=== PATIENT | male | born 1965 | race Caucasian/White ===

== ENCOUNTER 2018-03-25 10:56 | Emergency (ER) | payer BC ==
[2018-03-25 11:35] VITALS: BP 143/67
--- NOTE | 2018-03-25 12:04 | ED ---
Respiratory - History of Current Complaint Chief Complaint: UCGeneralIllness Stated Complaint: CHEST CONGESTION Time Seen by Provider: 03/25/18 11:50 Hx Obtained From: Patient Onset/Duration: Gradual Onset, Lasting Weeks, Still Present Timing: Constant Initial Severity: Moderate Current Severity: Moderate Pain Intensity: 0 Sputum Amount: Scant Sputum Color: Clear Aggravating Factor(s): Deep Breaths Alleviating Factor(s): OTC Medications, Spontaneous Resolution Associated Signs and Symptoms: URI, Chest Pain with Cough, Nasal Congestion - Allergy/Home Medications Allergies/Adverse Reactions: Allergies Allergy/AdvReac Type Severity Reaction Status Date / Time No Known Allergies Allergy Verified 03/25/18 11:35 PMH/Surg Hx/FS Hx/Imm Hx Previously Healthy: No - smoker. Endocrine/Hematology History: Denies: Hx Diabetes, Hx Thyroid Disease Cardiovascular History: Denies: Hx Hypertension, Hx Pacemaker/ICD Respiratory History: Denies: Hx Asthma, Hx Chronic Obstructive Pulmonary Disease (COPD) GI History: Denies: Hx Ulcer History: Denies: Hx Renal Disease Sensory History: Denies: Hx Hearing Aid Psychiatric History: Denies: Hx Panic Disorder - Surgical History Surgery Procedure, Year, and Place: L4-5 discectomy 2002 Infectious Disease History: No Infectious Disease History: Denies: Hx Hepatitis, Hx Human Immunodeficiency Virus (HIV), Traveled Outside the [place] in Last 30 Days - Family History Known Family History: Positive: Other - No hx of respiratory disease in the family. - Social History Occupation: Employed Full-time Alcohol Use: None Substance Use Type: Reports: None Smoking Status (MU): Heavy Every Day Tobacco Smoker Amount Used/How Often: 1/2 ppd Length of Time of Smoking/Using Tobacco: 25 years Review of Systems Positive: Cough All Other Systems Reviewed And Are Negative: Yes Physical Exam Triage Information Reviewed: Yes Vital Signs On Initial Exam: Initial Vitals Temp Pulse Resp BP Pulse Ox 97.5 F 78 18 143/67 99 03/25/18 11:30 03/25/18 11:30 03/25/18 11:30 03/25/18 11:30 03/25/18 11:30 Vital Signs Reviewed: Yes Appearance: Positive: Well-Appearing, No Pain Distress, Well-Nourished Skin: Positive: Warm Eyes: Positive: Normal ENT: Positive: Pharynx normal, Nasal congestion, TMs normal, Uvula midline. Negative: Pharyngeal erythema, Nasal drainage, TM bulging, TM dull, TM red, Tonsillar swelling, Tonsillar exudate, Trismus, Muffled voice, Hoarse voice, Dental tenderness, Sinus tenderness Neck: Positive: Supple, Nontender, No Lymphadenopathy Respiratory/Lung Sounds: Positive: Clear to Auscultation, Breath Sounds Present. Negative: Rales, Rhonchi, Subcutaneous Emphysema, Stridor, Tracheal Deviation, Wheezes, Unable to speak in full sentences Cardiovascular: Positive: RRR. Negative: Leg Edema Left, Leg Edema Right Abdomen Description: Positive: No Organomegaly, Soft. Negative: Distended, Guarding Musculoskeletal: Negative: Edema Left, Edema Right Neurological: Positive: Normal, Sensory/Motor Intact, Normal Gait Diagnostics - Vital Signs Vital Signs Temp Pulse Resp BP Pulse Ox 03/25/18 11:30 97.5 F 78 18 143/67 99 - Laboratory Lab Statement: Any lab studies that have been ordered have been reviewed, and results considered in the medical decision making process. Disposition - Course Assessment/Plan: supporitive care described. Z pack as this has been 2-3 weeks in a smoker an he felt better then worse again. - Diagnoses Provider Diagnoses: Bronchitis Discharge - Sign-Out/Discharge Documenting (check all that apply): Patient Departure All imaging exams completed and their final reports reviewed: No Studies - Discharge Plan Condition: Good Disposition: HOME Prescriptions: Azithromyxin KUNAL (NF) [Z-Kunal (Zithromax) 250 mg tabs #6] 2 tab PO .TODAY, THEN 1 DAILY #6 tab Benzonatate CAP* [Tessalon 100 MG CAP*] 100 mg PO TID PRN #21 cap PRN Reason: Cough Patient Education Materials: Acute Bronchitis (ED) Referrals: Polo Costa MD [Primary Care Provider] - - Billing Disposition and Condition Condition: GOOD Disposition: Home
== END 2018-03-25 12:09 | disposition home or self-care (01) ==
LOC: UCCORT 10:56
DX: J40 Bronchitis, not specified as acute or chronic (principal); F17.210 Nicotine dependence, cigarettes, uncomplicated
CPT/HCPCS: 99212; G0463